=== PATIENT | female | born 1960 | race Caucasian/White ===

== ENCOUNTER 2017-07-21 12:20 | Emergency (ER) | payer BC ==
[2017-07-21 12:49] VITALS: BP 126/76; PULSE 82; TEMP 97.3; BMI 31.3
[2017-07-21] MEDS ORDERED: ASPIRIN 325 MG TABLET PO ONE (12:50)
--- NOTE | 2017-07-21 12:55 | PDOC ---
History of Present Illness - General Chief Complaint: Chest Pain Stated Complaint: CHEST PAIN Time Seen by Provider: 07/21/17 12:30 History Source: Patient - History of Present Illness Presenting Symptoms: Chest Pain Severity/Quality: reports: moderate Chest Pain Radiation: reports: no radiation Past History - Past Medical History Allergies/Adverse Reactions: Allergies Allergy/AdvReac Type Severity Reaction Status Date / Time Penicillins Allergy Mild Rash Verified 03/14/15 11:35 Home Medications: Ambulatory Orders Cholecalciferol (Vitamin D3) [Vitamin D3] 400 unit PO DAILY #0 capsule 04/28/13 Folic Acid - 1 mg PO DAILY #0 tablet 04/28/13 Calcium 500 mg PO DAILY 08/25/13 Mv,Ca,Iron,Min/FA/Phytosterol [Centrum Cardio Tablet] 1 tab PO DAILY 08/25/13 Anemia: Yes (hemolytic) Asthma: No Cancer: No Cardiac Disorders: Yes CVA: No COPD: No CHF: No Dementia: No Diabetes: No GI Disorders: No Disorders: No HTN: Yes Hypercholesterolemia: No Liver Disease: Yes (ENLARGED LIVER) Seizures: No Thyroid Disease: No - Surgical History Abdominal Surgery: No Appendectomy: No Cardiac Surgery: Yes (OPEN HEART FOR MYXOMA) Cholecystectomy: Yes Lung Surgery: No Neurologic Surgery: No Orthopedic Surgery: No - Suicide/Smoking/Psychosocial Hx Smoking Status: No Smoking History: Never smoked Have you smoked in the past 12 months: No Number of Cigarettes Smoked Daily: 0 Information on smoking cessation initiated: No Hx Alcohol Use: No Drug/Substance Use Hx: No Substance Use Type: None Hx Substance Use Treatment: No Cardiac Specific PMH - Complaint Specific PMHX Myocardial Infarction: Yes Pacemaker: No Review of Systems - Review of Systems Constitutional: No: Chills, Fever Respiratory: Yes: Shortness of Breath. No: Cough Cardiac (ROS): No: Chest Pain, Lightheadedness, Palpitations, Syncope ABD/GI: No: Nausea, Vomiting *Physical Exam - Vital Signs Last Vital Signs Temp Pulse Resp BP Pulse Ox 97.3 F L 82 20 126/76 97 07/21/17 12:24 07/21/17 12:24 07/21/17 12:24 07/21/17 12:24 07/21/17 12:24 - Physical Exam General Appearance: Yes: Appropriately Dressed. No: Apparent Distress HEENT: positive: Normal Voice Neck: positive: Supple Respiratory/Chest: positive: Chest Tender (to L upper chest, pain worse w/ ROM of L arm), Lungs Clear, Normal Breath Sounds. negative: Respiratory Distress Cardiovascular: positive: Regular Rate, S1, S2 Extremity: positive: Normal Inspection Integumentary: positive: Dry, Warm Neurologic: positive: Fully Oriented, Alert, Normal Mood/Affect ED Treatment Course - LABORATORY CBC & Chemistry Diagram: 07/21/17 12:50 07/21/17 12:50 - ADDITIONAL ORDERS Additional order review: Laboratory Results 07/21/17 07/21/17 17:29 12:50 Sodium 140 Potassium 4.3 Chloride 106 Carbon Dioxide 27 Anion Gap 7 L BUN 9 Creatinine 0.9 Creat Clearance w eGFR > 60 Random Glucose 102 Calcium 8.4 L Total Bilirubin 0.4 D AST 10 L D ALT 25 D Alkaline Phosphatase 90 Creatine Kinase 70 86 Troponin I < 0.02 < 0.02 Total Protein 6.6 Albumin 3.3 L 07/21/17 12:50 RBC 4.39 MCV 90.3 MCHC 31.9 L RDW 14.4 MPV 7.8 Neutrophils % 69.8 D Lymphocytes % 19.8 D Monocytes % 8.2 Eosinophils % 1.5 Basophils % 0.7 - RADIOLOGY Radiology Studies Ordered: Category Date Time Status CHEST PA & LAT [RAD] Stat Radiology 07/21/17 12:31 Taken - Medications Given in the ED: ED Medications Discontinued Medications Generic Name Dose Route Start Last Admin Trade Name Freq PRN Reason Stop Dose Admin Acetaminophen 650 mg 07/21/17 16:51 07/21/17 17:02 Tylenol - PO 07/21/17 16:52 650 mg ONCE ONE Administration Aspirin 325 mg 07/21/17 12:50 07/21/17 13:38 Asa - PO 07/21/17 12:51 Not Given ONCE ONE Aspirin 243 mg 07/21/17 12:57 07/21/17 12:40 Asa - PO 07/21/17 12:58 243 mg ONCE ONE Administration Medical Decision Making - Medical Decision Making 07/21/17 12:51 56-year-old female, status post resection of atrial myxoma in 2014, hypertension , [place] in 2016 with one stent placement, follows up with Dr. Mixon of cardiology here with chest pain. Patient states while making breakfast at 9:30 this morning, experienced sudden onset, sharp pain, non-radiating to left chest that has been constant but getting better, only worse with palpation, not with exertion. Patient states she lifted heavy laundry detergent and softener while doing laundry yesterday and thinks pain is due to this. No shortness of breath, diaphoresis, nausea, vomiting, palpitations, leg pain or swelling, cough, fever or chills. States pain is very different than pain when she had [place]. See exam CP Possibly MSK etiology as pain very reproducible on exam and story not great for ACS Due to high heart score, will r/o w/ 2 sets and discuss further w/u with cards -asa -ekg -cxr -labs 07/21/17 14:23 EKG without any remarkable findings as per discussion with Dr. Vincent who reviewed current and old ekg via text. Agrees that if 2 sets neg, can be discharged 07/21/17 14:22 07/21/17 18:11 Second troponin negative. Patient has remained stable and well appearing, in ED , will discharge to continue following up with cardiology. Reasons to return discussed with patient *DC/Admit/Observation/Transfer Diagnosis at time of Disposition: Chest pain Qualifiers: Chest pain type: unspecified Qualified Code(s): R07.9 - Chest pain, unspecified - Discharge Dispostion Disposition: HOME Condition at time of disposition: Good - Referrals Referrals: Giulia Sutton MD [Primary Care Provider] - - Patient Instructions Printed Discharge Instructions: DI for Atypical Chest Pain Additional Instructions: The cause of your chest pain is more likely muscular as your EKG and labs were normal. 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
[2017-07-21] MEDS ORDERED: ASPIRIN 81 MG CHEWABLE TABLETS PO ONE (12:57)
[2017-07-21] MEDS ORDERED: ASPIRIN 81 MG CHEWABLE TABLETS ONE (12:59)
[2017-07-21 13:01] LABS: BASO % 0.7 % (0-2.0); EOS % 1.5 % (0-4.5); HEMATOCRIT 39.7 % (32.4-45.2); HEMOGLOBIN 12.6 GM/dL (10.7-15.3); LYMPH % 19.8 % (8-40); MCH 28.8 pg (25.7-33.7); MCHC 31.9 g/dl (32.0-36.0); MEAN CELL VOLUME 90.3 fl (80-96); MEAN PLT VOLUME 7.8 fl (7.5-11.1); MONO % 8.2 % (3.8-10.2); NEUT % 69.8 % (42.8-82.8); PLATELET COUNT 424 K/MM3 (134-434); RBC 4.39 M/mm3 (3.60-5.2); RDW 14.4 % (11.6-15.6); WHITE BLOOD COUNT 13.2 K/mm3 (4.0-10.0)
--- NOTE | 2017-07-21 13:18 | PDOC ---
*Physical Exam - Vital Signs Last Vital Signs Temp Pulse Resp BP Pulse Ox 97.3 F L 82 20 126/76 97 07/21/17 12:24 07/21/17 12:24 07/21/17 12:24 07/21/17 12:24 07/21/17 12:24 Heart Score/ECG Review #1 ECG reviewed & interpreted by me at: 12:35 07/21/17 13:18 NSR 79, Q wave V1-V2, no std/[place], normal axis, normal intervals, QTC 438 msec ED Treatment Course - LABORATORY CBC & Chemistry Diagram: 07/21/17 12:50 07/21/17 12:50 - ADDITIONAL ORDERS Additional order review: 07/21/17 12:50 RBC 4.39 MCV 90.3 MCHC 31.9 L RDW 14.4 MPV 7.8 Neutrophils % 69.8 D Lymphocytes % 19.8 D Monocytes % 8.2 Eosinophils % 1.5 Basophils % 0.7 Medical Decision Making - Medical Decision Making 07/21/17 13:16 Pt seen by the Advanced Practice Provider under my direct supervision Pt interviewed and examined Ancillary studies reviewed I agree with plan as outlined by the Advanced Practice Provider LORENZO [place] Vital Signs Temp Pulse Resp BP Pulse Ox 97.3 F L 82 20 126/76 97 07/21/17 12:24 07/21/17 12:24 07/21/17 12:24 07/21/17 12:24 07/21/17 12:24 56-year-old female with history of atrial myxoma, coronary disease status post [place] presents with atypical chest pain. The patient reported carrying a heavy object recently. Patient started complaining about some dull left upper chest pain worsened with movement and reproducible by palpation. This is approximate where the pectoralis major and pectoralis minor inserts to left humerus. Denies shortness of breath. Denies radiation. Given her cardiac history, I agreed that the patient should get a troponin. However, I have strong suspicion that this is likely muscle skull to. Once results return, we'll touch base with the patient's filter press tender. If workup is negative, and a filter press tender is agreeable, the patient can be discharged home with cardiotomy follow-up. *DC/Admit/Observation/Transfer - Referrals Referrals: Giulia Sutton MD [Primary Care Provider] - - Patient Instructions - Post Discharge Activity
[2017-07-21 13:22] LABS: ALBUMIN 3.3 g/dl (3.4-5.0); ANION GAP 7 (8-16); BILIRUBIN,TOTAL 0.4 mg/dL (0.2-1.0); BLOOD UREA NITROGEN 9 mg/dL (7-18); CALCIUM 8.4 mg/dL (8.5-10.1); CHLORIDE 106 mmol/L (98-107); CO2 27 mmol/L (21-32); CREATININE 0.9 mg/dL (0.55-1.02); GLUCOSE,RANDOM 102 mg/dL (74-106); POTASSIUM 4.3 mmol/L (3.5-5.1); SGOT/AST 10 U/L (15-37); SGPT/ALT 25 U/L (12-78); SODIUM 140 mmol/L (136-145); TOT PROT 6.6 g/dl (6.4-8.2)
[2017-07-21 13:24] LABS: ALK PHOS 90 U/L (45-117)
[2017-07-21] MEDS ORDERED: ACETAMINOPHEN 325 MG TABLET (FP) PO ONE (16:51)
[2017-07-21] MEDS ORDERED: ACETAMINOPHEN 325 MG TABLET (FP) ONE (16:53)
--- NOTE | 2017-07-22 11:25 | EKG ---
Test Reason : Blood Pressure : / mmHG Vent. Rate : 079 BPM Atrial Rate : 079 BPM P-R Int : 162 ms QRS Dur : 080 ms QT Int : 382 ms P-R-T Axes : 046 001 062 degrees QTc Int : 438 ms NORMAL SINUS RHYTHM SEPTAL INFARCT , AGE UNDETERMINED ABNORMAL ECG WHEN COMPARED WITH ECG OF 14-MAR-2015 11:36, SEPTAL INFARCT IS NOW PRESENT NONSPECIFIC T WAVE ABNORMALITY NOW EVIDENT IN LATERAL LEADS Confirmed by DAMON GARCIA MD ([id number]) on 07/22/2017 11:24:53 AM Referred By: Confirmed By:DAMON GARCIA MD
== END 2017-07-21 18:40 | disposition home or self-care (01) ==
LOC: JER 12:20
DX: R07.89 Other chest pain (principal); I25.2 Old myocardial infarction; I10 Essential (primary) hypertension; D15.1 Benign neoplasm of heart
CPT/HCPCS: 36415; 71046-TC; 80053; 82550; 84484; 85025; 93005; 93010; 99282-25

== ENCOUNTER 2017-12-25 14:47 | Emergency (ER) | payer BC ==
[2017-12-25 14:54] VITALS: BP 155/97; PULSE 99; TEMP 98; BMI 31.3
--- NOTE | 2017-12-25 14:55 | PDOC ---
Rapid Medical Evaluation Chief Complaint: Injury Time Seen by Provider: 12/25/17 14:50 Medical Evaluation: Allergies Allergy/AdvReac Type Severity Reaction Status Date / Time Penicillins Allergy Mild Rash Verified 12/25/17 14:50 I have performed a brief in-person evaluation of this patient. The patient presents with a chief complaint of: left arm pain and left facial wound s/p fall. patient tripped while stepping up large sidewalk and fell, scraping her face on the ground and landing on her left arm. She denies LOC Pertinent physical exam findings: abrasion to left infraorbital region. TTP of left elbow and pain with pronation and supination of left forearm I have ordered the following: xray left elbow The patient will proceed to the ED for further evaluation. Discharge Disposition - Diagnosis Fall, Left arm pain - Referrals - Patient Instructions - Post Discharge Activity
--- NOTE | 2017-12-25 19:59 | PDOC ---
Attending Attestation - Resident Resident Name: Jose Guadalupe Perez - ED Attending Attestation I have performed the following: I have examined & evaluated the patient, The case was reviewed & discussed with the resident, I agree w/resident's findings & plan, Exceptions are as noted - Medical Decision Making 12/25/17 19:59 I, Dr. Liliana Salvador, DO, attest that this document has been prepared under my direction and personally reviewed by me in its entirety. I further attest, that it accurately reflects all work, treatment, procedures and medical decision -making performed by me. 12/25/17 21:37 57yo female with mechanical fall landing on her L arm and L face -no loc -bruising and abrasion to L face -tetanus is UTD -will obtain xrays of arm -ct head and face bc pt is on asa and plavix -neuro intact -will monitor and reassess 12/25/17 21:39 ambulatory in the ED with a steady gait 12/25/17 21:39 neuro remained intact no arm fractures head and facial bones ct negative 12/25/17 21:40 stable for d/c to home <Liliana Salvador - Last Filed: 12/25/17 21:37> - HPI HPI: 12/25/17 21:51 The patient is a 57 year old female, with a significant past medical history of cardiac history (including myxoma removal and stent placement, on ASA and Plavix ) and HTN, who presents to the emergency department complaining of left facial pain and left arm pain after a fall today. She notes that she tripped on a sidewalk and fell forward injuring her left periorbital region and left forearm when she attempted to brace her fall. She did not lose consciousness and actually walked away then drove herself to the hospital. She has unclear tetanus status. She denies any other complaints. The patient denies chest pain, shortness of breath, Denies fever, chills, nausea , vomiting, diarrhea and constipation. Allergies: Penicillin Past surgical history: Stent placement Social History: No alcohol, tobacco or drug use reported - Physicial Exam PE: 12/25/17 21:51 General Appearance: Yes: Nourished, Appropriately Dressed. No: Apparent Distress HEENT: positive: EOMI, CHU, Normal Voice. negative: Normal ENT Inspection ( Left infraorbital swelling with light abrasion, no obvious deformity.) Neck: positive: Trachea midline, Normal Thyroid, Supple. negative: Tender, Rigid Respiratory/Chest: positive: Lungs Clear, Normal Breath Sounds. negative: Chest Tender, Respiratory Distress, Accessory Muscle Use Cardiovascular: positive: Regular Rhythm, Regular Rate Gastrointestinal/Abdominal: positive: Normal Bowel Sounds, Flat, Soft. negative : Tender Lymphatic: negative: Adenopathy, Tenderness Musculoskeletal: positive: Other (Left posterior-medial forearm swelling with tenderness to palpation but no bony deformity). negative: Normal Inspection Extremity: positive: Normal Capillary Refill, Normal Range of Motion, Tender ( per above). negative: Normal Inspection Integumentary: positive: Dry, Warm. negative: Normal Color (erythema over eye per above) Neurologic: positive: director of consumer affairs II-XII NML intact, Fully Oriented, Alert, Normal Mood/ Affect, Normal Response, Motor Strength 5/5 <Sanjeev Toscano - Last Filed: 12/25/17 22:01>
--- NOTE | 2017-12-25 20:09 | PDOC ---
History of Present Illness - General Chief Complaint: Injury Stated Complaint: FALL/ FACIAL LACERATION Time Seen by Provider: 12/25/17 14:50 - History of Present Illness Initial Comments: 57 year old female with PMH of significant cardiac history (including myxoma removal and stent placement, on ASA and Plavix) and HTN presenting with left facial pain and left arm pain after fall. States that she tripped over an uneven side walk and fell to the front and side injuring her left perioribtal region ad left forearm as she attempted to brace her fall. Denies any skin opening, or severe bleeding. She did not lose consciousness and actually walked away then drove herself to the hospital. She has unclear tetanus status. Denies any visual symptoms or gait abnormalities. Denies fevers, chills, nausea, vomiting, diarrhea, or other sick symptoms. 12/25/17 21:27 Past History - Past Medical History Allergies/Adverse Reactions: Allergies Allergy/AdvReac Type Severity Reaction Status Date / Time Penicillins Allergy Mild Rash Verified 12/25/17 14:50 Home Medications: Ambulatory Orders Aspirin 81 mg PO DAILY 12/25/17 Atorvastatin Calcium 80 mg PO DAILY 12/25/17 Clopidogrel Bisulfate [Plavix -] 75 mg PO DAILY 12/25/17 Folic Acid 1 mg PO DAILY 12/25/17 Furosemide [Lasix -] 40 mg PO DAILY 12/25/17 Pantoprazole Sodium [Protonix -] 40 mg PO DAILY 12/25/17 Ramipril [Altace] 1.25 mg PO DAILY 12/25/17 Anemia: Yes (hemolytic) Asthma: No Cancer: No Cardiac Disorders: Yes (M.I) CVA: No COPD: No CHF: No DVT: No Dementia: No Diabetes: No GI Disorders: No Disorders: No HTN: Yes Hypercholesterolemia: No Liver Disease: Yes (ENLARGED LIVER) Seizures: No Thyroid Disease: No - Surgical History Abdominal Surgery: No Appendectomy: No Cardiac Surgery: Yes (OPEN HEART FOR MYXOMA) Cholecystectomy: Yes Lung Surgery: No Neurologic Surgery: No Orthopedic Surgery: No - Suicide/Smoking/Psychosocial Hx Smoking Status: No Smoking History: Never smoked Have you smoked in the past 12 months: No Number of Cigarettes Smoked Daily: 0 Information on smoking cessation initiated: No Hx Alcohol Use: No Drug/Substance Use Hx: No Substance Use Type: None Hx Substance Use Treatment: No Review of Systems - Review of Systems Constitutional: No: Chills, Diaphoresis, Fever HEENTM: No: Blurred Vision, Recent change in vision, Double Vision Respiratory: No: Cough, Shortness of Breath, Wheezing, Productive cough Cardiac (ROS): No: Chest Pain, Edema, Irregular Heart Rate ABD/GI: No: Constipated, Diarrhea, Nausea, Vomiting : No: Burning, Dysuria Musculoskeletal: No: Back Pain, Joint Pain, Muscle Weakness Integumentary: Yes: Bruising, Erythema, Lesions, Lumps Neurological: No: Headache, Numbness, Paresthesia Psychiatric: No: Anxiety, Depression *Physical Exam - Vital Signs Last Vital Signs Temp Pulse Resp BP Pulse Ox 98.0 F 99 H 18 155/97 100 12/25/17 14:50 12/25/17 14:50 12/25/17 14:50 12/25/17 14:50 12/25/17 14:50 - Physical Exam General Appearance: Yes: Nourished, Appropriately Dressed. No: Apparent Distress HEENT: positive: EOMI, CHU, Normal Voice. negative: Normal ENT Inspection ( Left infraorbital swelling with light abrasion, no obvious deformity.) Neck: positive: Trachea midline, Normal Thyroid, Supple. negative: Tender, Rigid Respiratory/Chest: positive: Lungs Clear, Normal Breath Sounds. negative: Chest Tender, Respiratory Distress, Accessory Muscle Use Cardiovascular: positive: Regular Rhythm, Regular Rate Gastrointestinal/Abdominal: positive: Normal Bowel Sounds, Flat, Soft. negative : Tender Lymphatic: negative: Adenopathy, Tenderness Musculoskeletal: positive: Other (Left posterior-medial forearm swelling with tenderness to palpation but no bony deformity). negative: Normal Inspection Extremity: positive: Normal Capillary Refill, Normal Range of Motion, Tender ( per above). negative: Normal Inspection Integumentary: positive: Dry, Warm. negative: Normal Color (erythema over eye per above) Neurologic: positive: economics instructor II-XII NML intact, Fully Oriented, Alert, Normal Mood/ Affect, Normal Response, Motor Strength 5/5 Medical Decision Making - Medical Decision Making 57 year old female with cardiac PMH on ASA and Plavix prsenting with accidental left forearm and facial trauma. Head CT, facial bone CT, left elbow XR, and left forearm XR negative. Patient can be discharged home safely as there is no acute fracture and she received her Head CT >6 hours after her head trauma. Patient given TDap as well because of unclear status. 12/25/17 21:36 *DC/Admit/Observation/Transfer Diagnosis at time of Disposition: Left arm pain Fall Qualifiers: Encounter type: initial encounter Qualified Code(s): W19.XXXA - Unspecified fall, initial encounter Facial trauma Qualifiers: Encounter type: initial encounter Qualified Code(s): S09.93XA - Unspecified injury of face, initial encounter Head trauma Qualifiers: Encounter type: initial encounter Qualified Code(s): S09.90XA - Unspecified injury of head, initial encounter - Discharge Dispostion Disposition: HOME Condition at time of disposition: Improved Decision to Admit order: No - Referrals Referrals: Giulia Sutton MD [Primary Care Provider] - - Patient Instructions Printed Discharge Instructions: DI for Closed Head Injury, How To Perform RICE (Rest, Ice, Compress, Elevate) Additional Instructions: You have no fractures of your head/ arm and no bleed in your head. Please lighten your activity with your left hand and use Tylenol/ Motrin for your pain. Please follow up with your PCP within a week. Please return to the ED if you have any new or worsening symptoms. - Post Discharge Activity Forms/Work/School Notes: Back to Work
[2017-12-25] MEDS ORDERED: DIPHTH,PERTUSS(ACELL),TET 0.5 ML DISP.SYRIN IM ONE (21:24)
== END 2017-12-25 21:50 | disposition home or self-care (01) ==
LOC: JER 14:47
PROC: 3E0234Z Introduction of Serum, Toxoid and Vaccine into Muscle, Percutaneous Approach (ICD-10-PCS; principal; 2017-12-25)
DX: M79.602 Pain in left arm (principal); S09.90XA Unspecified injury of head, initial encounter; S09.93XA Unspecified injury of face, initial encounter; W18.39XA Other fall on same level, initial encounter; Y93.89 Activity, other specified; Y92.9 Unspecified place or not applicable; I10 Essential (primary) hypertension; I25.2 Old myocardial infarction; Z79.01 Long term (current) use of anticoagulants
CPT/HCPCS: 70150-TC-FY; 70450-TC; 70486-TC; 73070-TC-LT-FY; 73090-TC-LT-FY; 90715; 99281-25

== ENCOUNTER → 2019-03-16 | Day surgery (SDC) | payer BC ==
--- NOTE | 2019-03-17 16:23 | PATH ---
Surgical Pathology Report Patient Name: LOI GONCALVES [facility]. Rec. #: [id number] /Age/Gender: 1960 (Age: 58) / F Account: [id number] Location: Taken: 03/16/2019 Received: 03/16/2019 Reported: 03/17/2019 Physicians: Светлана Shaw M.D. 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 DEEPER LEVELS HAVE BEEN EXAMINED. Electronically Signed Lorenza Strong M.D. Gross Description Received in formalin labeled "right breast 2:00" is a 1 x 1 x 0.2 cm aggregate of fibroadipose tissue. The specimens are submitted in toto in one cassette. Time to formalin fixation: <1 minute Total formalin fixation time: Between 8-9 hours.
== END | disposition home or self-care (01) ==
LOC: JMAMMO-SUR 09:45
PROVIDERS: ATTEND Internal Medicine Geriatric Medicine
PROC: 0HBT3ZX Excision of Right Breast, Percutaneous Approach, Diagnostic (ICD-10-PCS; principal; 2019-03-16)
DX: N60.31 Fibrosclerosis of right breast (principal)
CPT/HCPCS: 19083; 77065-TC; 87899; 88305-TC; A4648

== ENCOUNTER 2021-05-02 13:17 | Inpatient (IN) | payer BC ==
[2021-05-02 13:42] VITALS: BMI 31.3
[2021-05-02] MEDS ORDERED: SODIUM CHLORIDE 1,000 ML IV SCH (14:30)
[2021-05-02] MEDS ORDERED: ASPIRIN 81 MG CHEWABLE TABLETS PO ONE (14:33)
[2021-05-02] MEDS ORDERED: ASPIRIN 81 MG CHEWABLE TABLETS ONE (14:44)
[2021-05-02] MEDS ORDERED: ACETAMINOPHEN 1000 MG/100 ML VIAL IVPB ONE (14:50)
[2021-05-02] MEDS ORDERED: METOCLOPRAMIDE HCL INJECTION 10 MG/2 ML VIAL IVPUSH ONE (14:51)
[2021-05-02 14:54] LABS: BASO % 0.7 % (0-2.0); EOS % 1.8 % (0-4.5); HEMATOCRIT 44.9 % (32.4-45.2); HEMOGLOBIN 15.1 GM/dL (10.7-15.3); LYMPH % 32.9 % (8-40); MCH 31.1 pg (25.7-33.7); MCHC 33.6 g/dl (32.0-36.0); MEAN CELL VOLUME 92.5 fl (80-96); MEAN PLT VOLUME 8.9 fl (7.5-11.1); NEUT % 55.6 % (42.8-82.8); PLATELET COUNT 313 10^3/uL (134-434); RBC 4.85 M/mm3 (3.60-5.2); RDW 14.4 % (11.6-15.6); WHITE BLOOD COUNT 7.9 K/mm3 (4.0-10.0)
[2021-05-02] MEDS ORDERED: ATORVASTATIN CA 40 MG TABLET (FP) PO ONE (14:54)
[2021-05-02 15:02] LABS: INR 0.96 (0.83-1.09); PROTHROMBIN TIME (PATIENT) 11.2 SEC (9.7-13.0)
[2021-05-02] MEDS ORDERED: METOCLOPRAMIDE HCL INJECTION 10 MG/2 ML VIAL ONE (15:02)
[2021-05-02] MEDS ORDERED: ATORVASTATIN CA 40 MG TABLET (FP) ONE (15:03)
[2021-05-02] MEDS ORDERED: ACETAMINOPHEN INJECTION 100 ML IVPB ONE (15:03)
[2021-05-02 15:09] LABS: CHLORIDE 109 mmol/L (98-107); SODIUM 141 mmol/L (136-145)
[2021-05-02 15:11] LABS: ALBUMIN 3.6 g/dl (3.4-5.0); ANION GAP 6 MMOL/L (8-16); BLOOD UREA NITROGEN 16.6 mg/dL (7-18); CO2 26 mmol/L (21-32)
[2021-05-02 15:12] LABS: GLUCOSE,RANDOM 98 mg/dL (74-106)
[2021-05-02 15:14] LABS: CHOLESTEROL 187 mg/dL (50-200); SGOT/AST 19 U/L (15-37); SGPT/ALT 28 U/L (13-61)
[2021-05-02 15:15] LABS: CREATININE 0.8 mg/dL (0.55-1.3); TRIGLYCERIDES 117 mg/dL (0-150)
[2021-05-02 15:16] LABS: BILIRUBIN,TOTAL 0.6 mg/dL (0.2-1); HDL CHOLESTEROL 49 mg/dL (40-60); LDL CHOLESTEROL (ONLY SJRH) 105 mg/dL (5-100); TOT PROT 6.9 g/dl (6.4-8.2)
[2021-05-02 15:17] LABS: ALK PHOS 70 U/L (45-117)
[2021-05-02] MEDS ORDERED: ACETAMINOPHEN 325 MG TABLET (FP) PO PRN (16:10)
[2021-05-02] MEDS ORDERED: FUROSEMIDE 40 MG TABLET (FP) PO SCH (18:00)
[2021-05-02] MEDS ORDERED: diazePAM 2 MG TABLET PO PRN ×2 (18:20→18:21)
[2021-05-02] MEDS ORDERED: diazePAM 5 MG TABLET PO ONE (18:21)
[2021-05-02 19:02] LABS: EPI CELLS 8 /uL (0-25.1); HYALINE CASTS 1 /uL (0-3.1); PH,URINE 5.5 (5.0-8.0); URINE APPEARANCE CLEAR; URINE BACTERIA 11 /uL (0-1359); URINE BILIRUBIN NEGATIVE (NEGATIVE); URINE COLOR YELLOW; URINE GLUCOSE (UA) NEGATIVE (NEGATIVE); URINE KETONE NEGATIVE (NEGATIVE); URINE LEUK ESTERASE 2+ (NEGATIVE); URINE NITRITE NEGATIVE (NEGATIVE); URINE PROTEIN NEGATIVE (NEGATIVE); URINE RBC 17 /uL (0-23.9); URINE UROBILINOGEN 0.2 mg/dL (0.2-1.0); URINE WBC 234 /uL (0-25.8)
[2021-05-02] MEDS ORDERED: FUROSEMIDE 40 MG TABLET (FP) ONE (19:32)
[2021-05-02] MEDS ORDERED: ATORVASTATIN CA 40 MG TABLET (FP) PO SCH (22:00)
[2021-05-02] MEDS ORDERED: HEPARIN NA (PORCINE) 5,000 UNITS/ML 1ML VIAL SQ SCH (22:00)
[2021-05-02] MEDS ORDERED: METOPROLOL TARTRATE 25 MG TABLET (FP) PO SCH (22:00)
[2021-05-02] MEDS ORDERED: METOPROLOL TARTRATE 25 MG TABLET (FP) ONE (22:09)
[2021-05-03 06:45] LABS: BASO % 0.8 % (0-2.0); EOS % 1.8 % (0-4.5); HEMATOCRIT 42.6 % (32.4-45.2); HEMOGLOBIN 14.3 GM/dL (10.7-15.3); LYMPH % 36.1 % (8-40); MCH 31.4 pg (25.7-33.7); MCHC 33.6 g/dl (32.0-36.0); MEAN CELL VOLUME 93.5 fl (80-96); MONO % 10.5 % (3.8-10.2); NEUT % 50.8 % (42.8-82.8); PLATELET COUNT 299 10^3/uL (134-434); RBC 4.56 M/mm3 (3.60-5.2); RDW 14.3 % (11.6-15.6); WHITE BLOOD COUNT 6.8 K/mm3 (4.0-10.0)
[2021-05-03 07:15] LABS: ALBUMIN 3.5 g/dl (3.4-5.0); BLOOD UREA NITROGEN 13.3 mg/dL (7-18); CALCIUM 8.9 mg/dL (8.5-10.1); MAGNESIUM 2.3 mg/dL (1.8-2.4)
[2021-05-03 07:18] LABS: CREATININE 0.9 mg/dL (0.55-1.3); PHOSPHOROUS 3.4 mg/dL (2.5-4.9)
[2021-05-03 07:20] LABS: BILIRUBIN,TOTAL 0.7 mg/dL (0.2-1); TOT PROT 6.5 g/dl (6.4-8.2)
[2021-05-03] MEDS ORDERED: RAMIPRIL 1.25 MG CAPSULE PO SCH (10:00)
[2021-05-03] MEDS ORDERED: ASPIRIN COATED 81 MG TABLET.EC PO SCH (10:00)
[2021-05-03] MEDS ORDERED: ASPIRIN COATED 81 MG TABLET.EC ONE (10:24)
[2021-05-03] MEDS ORDERED: SPIRONOLACTONE 25 MG TABLET ONE (10:24)
[2021-05-03] MEDS: SPIRONOLACTONE 25 MG TABLET PO SCH (10:28)
[2021-05-03] MEDS ORDERED: diazePAM 5 MG TABLET PO ONE (10:44)
[2021-05-03] MEDS ORDERED: ENOXAPARIN NA (PORCINE) 40 MG/0.4 ML DISP.SYRIN SQ ONE (14:01)
[2021-05-03] MEDS: ENOXAPARIN NA (PORCINE) 40 MG/0.4 ML DISP.SYRIN SQ SCH (14:04)
[2021-05-03] MEDS ORDERED: LORazepam 2 MG/ML SDV VIAL IVPUSH PRN (18:47)
[2021-05-03] MEDS: ATORVASTATIN CA 40 MG TABLET (FP) PO SCH (21:57)
[2021-05-04 07:05] LABS: BASO % 1.1 % (0-2.0); EOS % 2.4 % (0-4.5); HEMATOCRIT 42.5 % (32.4-45.2); HEMOGLOBIN 14.6 GM/dL (10.7-15.3); LYMPH % 38.2 % (8-40); MCH 31.4 pg (25.7-33.7); MCHC 34.3 g/dl (32.0-36.0); MEAN CELL VOLUME 91.6 fl (80-96); MEAN PLT VOLUME 8.9 fl (7.5-11.1); MONO % 10.6 % (3.8-10.2); NEUT % 47.7 % (42.8-82.8); PLATELET COUNT 279 10^3/uL (134-434); RBC 4.64 M/mm3 (3.60-5.2); RDW 13.9 % (11.6-15.6); WHITE BLOOD COUNT 6.8 K/mm3 (4.0-10.0)
[2021-05-04 07:29] LABS: ALBUMIN 3.5 g/dl (3.4-5.0); BLOOD UREA NITROGEN 17.6 mg/dL (7-18); MAGNESIUM 2.1 mg/dL (1.8-2.4)
[2021-05-04 07:32] LABS: CREATININE 0.8 mg/dL (0.55-1.3)
[2021-05-04 07:33] LABS: BILIRUBIN,TOTAL 0.7 mg/dL (0.2-1)
[2021-05-04 07:36] LABS: PHOSPHOROUS 3.6 mg/dL (2.5-4.9)
[2021-05-04 07:37] LABS: TOT PROT 6.5 g/dl (6.4-8.2)
[2021-05-04] MEDS: CLOPIDOGREL BISULFATE 75 MG TABLET (FP) PO SCH (10:34)
[2021-05-04] MEDS: ENOXAPARIN NA (PORCINE) 40 MG/0.4 ML DISP.SYRIN SQ SCH (10:34)
[2021-05-04] MEDS: SPIRONOLACTONE 25 MG TABLET PO SCH (10:34)
[2021-05-04] MEDS: ATORVASTATIN CA 40 MG TABLET (FP) PO SCH (21:56)
[2021-05-05 06:20] VITALS: TEMP 97.7
[2021-05-05] MEDS: CLOPIDOGREL BISULFATE 75 MG TABLET (FP) PO SCH (11:11)
[2021-05-05] MEDS: SPIRONOLACTONE 25 MG TABLET PO SCH (11:12)
[2021-05-05] MEDS: ENOXAPARIN NA (PORCINE) 40 MG/0.4 ML DISP.SYRIN SQ SCH (11:12)
[2021-05-05 15:06] VITALS: BP 136/78; PULSE 88
== END 2021-05-05 14:46 | disposition home or self-care (01) | DRG 65 ==
LOC: JER 13:17 → JERBED 15:04 → J4W 05-03 14:38
PROVIDERS: ADMIT Internal Medicine
DX: I63.9 Cerebral infarction, unspecified (principal); G81.91 Hemiplegia, unspecified affecting right dominant side; I50.22 Chronic systolic (congestive) heart failure; I25.10 Atherosclerotic heart disease of native coronary artery without angina pectoris; Z98.61 Coronary angioplasty status; I25.5 Ischemic cardiomyopathy; I11.0 Hypertensive heart disease with heart failure; E78.5 Hyperlipidemia, unspecified; G43.909 Migraine, unspecified, not intractable, without status migrainosus
CPT/HCPCS: 36415; 70450-TC; 70551-TC; 80053; 80061; 81003; 82550; 82962; 83036; 83735; 84100; 84484; 85025; 85610; 85730; 86850; 86870; 86900; 86901; 86902; 87086; 93005; 93010; 93306-TC; 93880-TC; 97116-GP; 97161-GP; 99285-25; C9803; J0131; U0003; U0005

== ENCOUNTER 2021-05-08 05:19 | Day surgery (SDC) | payer BC ==
[2021-05-05 17:02] VITALS: BMI 31.1
[2021-05-08] MEDS ORDERED: LIDOCAINE VISCOUS 2% ORAL/TOP 15 ML UNIT-DOSE CUP ONE (11:38)
[2021-05-08] MEDS ORDERED: LIDOCAINE VISCOUS 2% ORAL/TOP 15 ML UNIT-DOSE CUP MM ONE (13:12)
[2021-05-08 13:31] VITALS: TEMP 97.7
[2021-05-08 13:57] VITALS: BP 131/75; PULSE 60
== END 2021-05-08 14:25 | disposition home or self-care (01) ==
LOC: JASU-ENDO 05:19
PROVIDERS: ATTEND Internal Medicine Cardiovascular Disease
PROC: B246ZZ4 Ultrasonography of Right and Left Heart, Transesophageal (ICD-10-PCS; principal; 2021-05-08 13:00)
DX: Z86.018 Personal history of other benign neoplasm (principal)
CPT/HCPCS: 93312; 93325

== ENCOUNTER 2025-01-12 19:55 | Emergency (ER) | payer BC ==
[2025-01-12 20:03] VITALS: TEMP 98.2; BMI 26.7
[2025-01-12 21:05] LABS: ABSOLUTE IMMATURE GRANULOCYTES 0.02 x10^3/uL (0.0-0.031); BASOPHILS # 0.04 x10^3/uL (0.01-0.08); EOSINOPHIL % 1.0 % (0.7-5.8); EOSINOPHILS # 0.09 x10^3/uL (0.04-0.36); MCHC 32.4 g/dl (32.2-35.5); MEAN CELL VOLUME 92.6 fl (79.4-94.8); MEAN PLT VOLUME 9.9 fl (9.4-12.3); MONOCYTE # 0.83 x10^3/uL (0.24-0.86); MONOCYTE % 8.9 % (4.7-12.5); RDW 13.6 % (12.4-16.4)
[2025-01-12 21:07] VITALS: BP 116/66; PULSE 80; RESP 16
[2025-01-12 21:17] LABS: CO2 27.0 mmol/L (21-32)
[2025-01-12 21:18] LABS: GLUCOSE,RANDOM 136.0 mg/dL (74-106)
[2025-01-12 21:20] LABS: CREATININE 0.8 mg/dL (0.55-1.3); SGOT/AST 9.0 U/L (15-37); SGPT/ALT 20.0 U/L (13-61)
[2025-01-12 21:22] LABS: TOT PROT 6.2 g/dl (6.4-8.2)
[2025-01-12 21:23] LABS: ALK PHOS 85.0 U/L (45-117)
[2025-01-12 21:54] LABS: EPI CELLS 11 /uL (0-25.1); HYALINE CASTS 0 /uL (0-3.1); URINE APPEARANCE Error; URINE BACTERIA 35 /uL (0-1359); URINE BILIRUBIN NEGATIVE (NEGATIVE); URINE COLOR YELLOW; URINE GLUCOSE (UA) NEGATIVE (NEGATIVE); URINE KETONE NEGATIVE (NEGATIVE); URINE LEUK ESTERASE 2+ (NEGATIVE); URINE NITRITE NEGATIVE (NEGATIVE); URINE PROTEIN NEGATIVE (NEGATIVE); URINE RBC 17 /uL (0-23.9); URINE UROBILINOGEN 1.0 mg/dL (0.2-1.0); URINE WBC 68 /uL (0-25.8)
[2025-01-13 00:55] LABS: HIV INTERPRETATION NEGATIVE (NEGATIVE)
[2025-01-13 00:58] LABS: HCV DIAGNOSTIC IN-HOUSE W/RFLX NON-REACTIVE (NONREACTIVE)
== END 2025-01-12 22:15 | disposition home or self-care (01) ==
LOC: JER 19:55
DX: Z00.00 Encounter for general adult medical examination without abnormal findings (principal)
CPT/HCPCS: 36415; 80053; 81003; 82962; 83690; 85025; 86803; 87086; 87389; 99283-25